=== PATIENT | female | born 1940 | race African-American/Black ===

== ENCOUNTER 2017-09-03 15:35 | Inpatient (IN) | payer MEDICARE, OTHER ==
[2017-09-03] MEDS ORDERED: Sodium Chloride 0.9% 1,000 ML IV ONE (16:17)
--- NOTE | 2017-09-03 16:18 | ED Physician Chart ---
ED Chief Complaint/HPI - Patient Information Date Seen:: 09/03/17 Time Seen:: 15:50 Chief Complaint:: Abdominal Pain History of Present Illness:: onset x 3 days of diffuse, intermittent abdominal pain; no report of H/As, neck pain, C/P, cough, SOB, A/N/V/D/C, fever, chills, or urinary s/s Allergies:: Allergies Allergy/AdvReac Type Severity Reaction Status Date / Time Penicillins [PCN] AdvReac Verified 09/03/17 15:41 Vitals:: Vital Signs - 8 hr 09/03/17 15:50 Temp 97.9 F HR 75 RR 16 BP 126/73 O2 Sat % 97 Historian:: Patient, EMS Review:: Nurse's Note Reviewed, Old Chart Reviewed, EMS run form Reviewed ED Review of Systems - Review of Systems General/Constitutional: No fever, No chills, No weight loss, No weakness, No diaphoresis, No edema, No loss of appetite Skin: No skin lesions, No rash, No bruising Head: No headache, No light-headedness Eyes: No loss of vision, No pain, No diplopia ENT: No earache, No nasal drainage, No sore throat, No tinnitus Neck: No neck pain, No swelling, No thyromegaly, No stiffness, No mass noted Cardio Vascular: No chest pain, No palpitations, No PND, No orthopnea, No edema Pulmonary: No SOB, No cough, No sputum, No wheezing GI: Nausea, Vomiting, Diarrhea, Pain, No melena, No hematochezia, No constipation, No hematemesis G/U: No dysuria, No frequency, No hematuria, No nacturia Tax Investigator: No vaginal discharge, No abnormal vaginal bleed, No contraction Musculoskeletal: No bone or joint pain, No back pain, No muscle pain Endocrine: No polyuria, No polydipsia Psychiatric: No prior psych history, No depression, No anxiety, No suicidal ideation, No homicidal ideation, No auditory hallucination, No visual hallucination Hematopoietic: No bruising, No lymphadenopathy Allergic/Immuno: No urticaria, No angioedema Neurological: No syncope, No focal symptoms, No weakness, No paresthesia, No headache, No seizure, No dizziness, Confusion, No vertigo ED Past Medical History - Past Medical History Obtainable: Yes Past Medical History: HTN, Asthma/COPD, Dyslipidemia, Dementia Family History: Diabetes Melitus, HTN Social History: Non Smoker, No Alcohol, No Drug Use, Single, Care Facility Surgical History: None Psychiatricy History: Dementia Medication: Reviewed Family Medical History - Family Member Father History Unknown: Yes ED Physical Exam - Physical Examination General/Constitutional: Awake, Well-developed, well-nourished, Alert, No distress, GCS 15, Non-toxic appearing, Ambulatory Head: Atraumatic Eyes: Lids, conjuctiva normal, PERRL, EOMI Skin: Nl inspection, No rash, No skin lesions, No ecchymosis, Well hydrated, No lymphadenopathy ENMT: External ears, nose nl, TM canals nl, Nasal exam nl, Lips, teeth, gums nl , Oropharynx nl, Tonsils nl Neck: Nontender, Full ROM w/o pain, No JVD, No nuchal rigidity, No bruit, No mass, No stridor Respiratory: Nl effort/Exclusion, Clear to Auscultation, No Wheeze/Rhonchi/Rales Cardio Vascular: RRR, No murmur, gallop, rubs, NL S1 S2, Carotid/Femoral/Distal pulses equal bilaterally GI: No tenderness/rebounding/guarding, No organomegaly, No hernia, Normal BS's, Nondistended, No McBurney tenderness Other GI comments:: + mass : No CVA tenderness Extremities: No tenderness or effusion, Full ROM, normal strength in all extremities, No edema, Normal digits & nails Neuro/Psych: Alert/oriented, DTR's symmetric, Normal sensory exam, Normal motor strength, Judgement/insight normal, Mood normal, Normal gait, No focal deficits Misc: Normal back, No paraspinal tenderness ED Labs/Radiology/EKG Results - Lab Results Comments:: BUN: 28 - Radiology Results Comments:: + fecal Impaction - EKG Interpretations EKG Time:: 16:29 Rate & Rhythm: 68; NSR Comments:: LVH; non-specific st-t changes ED Septic Shock - . Is Septic Shock (SBP<90, OR Lactate>4 mmol\L) present?: No - <6hrs of presentation: Vital Signs: Vital Signs - 8 hr 09/03/17 15:50 Temp 97.9 F HR 75 RR 16 BP 126/73 O2 Sat % 97 ED Reassessment (Disposition) - Reassessment Reassessment Condition:: Improved - Diagnosis Diagnosis:: Fecal Impaction; Abdominal Pain; Constipation; Dehydration' Pre-Renal Azotemia; Intractable Pain - Aftercare/Follow up Instructions Aftercare/Follow-Up Instructions:: Counseled pt regarding lab results/diagnosis & need follow up, Counseled pt & family regarding lab results/diagnosis & need follow up - Patient Disposition Discharge/Transfer:: Acute Care w/in this [facility] Accepting Physician:: Dr. Fletcher Time Called:: [id number] Time Responded:: 17:30 Admitted to:: Med/Surg Spoke to:: Dr. Fletcher Admitting Medical Physician:: Dr. Fletcher Condition at Disposition:: Stable, Improved ED Discharge Plan - Patient Disposition Admit/Discharge/Transfer: Acute Care w/in this [facility]
[2017-09-03 16:39] LABS: % BASOPHILS 0.2 % (0.0-2.0); % LYMPHOCYTES 21.3 % (20.0-50.0); % MONOCYTES 4.5 % (2.0-10.0); HEMATOCRIT 38.6 % (41.0-60); HEMOGLOBIN 12.3 gm/dL (12-16); MEAN CELL VOLUME 84.1 fl (81-100); MEAN CORPUSCULAR HEMOGLOBIN 26.8 pg (27.0-31.0); MEAN CORPUSCULAR HGB CONC 31.9 pg (28.0-36.0); MEAN PLATELET VOLUME 7.1 fl; MONOCYTE ABSOLUTE 0.2 Th/cmm (0.3-1.0); NEUTROPHILE ABSOLUTE 3.6 Th/cmm (1.8-8.0); PLATELET COUNT 253 Th/cmm (150-400); RED BLOOD COUNT 4.59 Mil/cmm (3.80-5.20); RED CELL DISTRIBUTION WIDTH 13.4 % (11.5-20.0); WHITE BLOOD COUNT 4.8 Th/cmm (4.8-10.8)
[2017-09-03 16:51] LABS: INR 0.98 (0.5-1.4); PROTHROMBIN TIME (TEST) 10.2 SECONDS (9.5-11.5)
[2017-09-03 16:59] LABS: ALBUMIN 4.2 gm/dL (3.7-5.3); ALKALINE PHOSPHATASE 38 U/L (34-104); AMYLASE SERUM 41 U/L (29-103); ANION GAP 11.1 (7.0-16.0); BILIRUBIN,TOTAL 0.2 mg/dL (0.3-1.0); BUN - UREA NITROGEN 28 mg/dL (7-25); CALCIUM SERUM 9.9 mg/dL (8.6-10.3); CARBON DIOXIDE 27.2 mEq/L (21.0-31.0); CHLORIDE 102 mEq/L (98-107); CHOLESTEROL 218 mg/dL (<200); CREATININE - SERUM 0.9 mg/dL (0.6-1.2); CREATININE KINASE 94 U/L (30-223); GLUCOSE 101 mg/dL (70-105); HDL -HIGH DENSITY LIPOPROTEIN 53 mg/dL (23-92); LIPASE 16 U/L (11-82); POTASSIUM SERUM 4.3 mEq/L (3.5-5.1); SGOT 15 U/L (13-39); SGPT/ALT 9 U/L (7-52); SODIUM SERUM 136 mEq/L (136-145); TOTAL PROTEIN,SERUM 8.3 gm/dL (6.0-8.3); TRIGLYCERIDES 115 mg/dL (<150)
[2017-09-03] MEDS ORDERED: Hydrocodone/APAP 5mg/325mg Tab PO PRN (19:15)
[2017-09-03] MEDS ORDERED: Mag Sulfate 2gm/50mL Premix 2 GM/50 ML BAG IV PRN (19:22)
[2017-09-03] MEDS ORDERED: Morphine Sulfate 2 mg/mL 1mL Syr IVP PRN (19:22)
[2017-09-03] MEDS ORDERED: Potassium Chloride 20 mEq ER Tab PO PRN (19:22)
[2017-09-03] MEDS: D5-0.9%NS 1,000 ML IV SCH (20:29)
[2017-09-03 21:52] LABS: A1C % 5.3 % (4.0-6.0)
[2017-09-04 03:54] VITALS: BP 139/69
[2017-09-04 06:36] LABS: % BASOPHILS 0.2 % (0.0-2.0); % LYMPHOCYTES 24.5 % (20.0-50.0); % MONOCYTES 7.2 % (2.0-10.0); % NEUTROPHILS 65.1 % (40.0-80.0); EOSINOPHILE ABSOLUTE 0.1 Th/cmm (0.1-0.4); HEMATOCRIT 35.7 % (41.0-60); HEMOGLOBIN 11.5 gm/dL (12-16); LYMPHOCYTE ABSOLUTE 1.1 Th/cmm (1.5-3.0); MEAN CELL VOLUME 83.7 fl (81-100); MEAN CORPUSCULAR HEMOGLOBIN 26.9 pg (27.0-31.0); MEAN CORPUSCULAR HGB CONC 32.2 pg (28.0-36.0); MEAN PLATELET VOLUME 7.9 fl; MONOCYTE ABSOLUTE 0.3 Th/cmm (0.3-1.0); NEUTROPHILE ABSOLUTE 2.8 Th/cmm (1.8-8.0); PLATELET COUNT 224 Th/cmm (150-400); RED BLOOD COUNT 4.27 Mil/cmm (3.80-5.20); RED CELL DISTRIBUTION WIDTH 13.5 % (11.5-20.0); WHITE BLOOD COUNT 4.3 Th/cmm (4.8-10.8)
[2017-09-04 06:48] LABS: ANION GAP 10.6 (7.0-16.0); BUN - UREA NITROGEN 21 mg/dL (7-25); CALCIUM SERUM 9.6 mg/dL (8.6-10.3); CARBON DIOXIDE 26.1 mEq/L (21.0-31.0); CHLORIDE 105 mEq/L (98-107); CREATININE - SERUM 0.8 mg/dL (0.6-1.2); GLUCOSE 103 mg/dL (70-105); POTASSIUM SERUM 3.7 mEq/L (3.5-5.1); SODIUM SERUM 138 mEq/L (136-145)
--- NOTE | 2017-09-04 07:45 | Diagnostic Imaging Report ---
CHEST X-RAY: AP view INDICATION: pain COMPARISON: None FINDINGS: Suboptimal lung the lungs are seen with chronic changes. No focal consolidation or effusions. Borderline prominent heart is noted. Degenerative changes of the spine are noted. IMPRESSION: Suboptimal lung volumes and chronic lung changes. No focal airspace consolidation identified.
--- NOTE | 2017-09-04 07:52 | Diagnostic Imaging Report ---
CT scan abdomen and pelvis without intravenous contrast HISTORY Total DLP equals 472 CTDI equals 10.1 Axial sections were obtained from the xiphoid process down to the pubic symphysis. The exam particularly within the pelvis and lower abdomen is compromised due to extensive artifact related to metallic surgical spinal hardware as well as artifact related to a metallic electrode pack situated over the right anterior abdomen. No focal lesions seen within the liver. The spleen appears normal. No focal amenities seen in the region of the pancreas. There is fullness of the right renal collecting system. No significant ureteral dilatation. The left kidney appears normal. The exam of the pelvis demonstrates a markedly distended stool-filled rectum consistent with a fecal impaction. Again, evaluation limited due to artifact as noted above. No obvious abnormal masses or fluid collections. Extensive surgical and degenerative changes noted through the lumbar spine. IMPRESSION: 1. Limited exam due to extensive artifact related to this surgical metallic hardware as noted above. 2. Distended stool-filled rectum consistent with a fecal impaction 3. Extensive surgical degenerative changes to the spine
[2017-09-04 14:59] LABS: URINE MICROSCOPIC INDICATED? YES; URINE SOURCE CATH
[2017-09-04 15:27] LABS: URINE BILIRUBIN NEGATIVE (NEGATIVE); URINE BLOOD NEGATIVE (NEGATIVE); URINE GLUCOSE (UA) NEGATIVE (NEGATIVE); URINE KETONE NEGATIVE (NEGATIVE); URINE LEUKOCYTE ESTERASE NEGATIVE (NEGATIVE); URINE NITRATE NEGATIVE (NEGATIVE); URINE PH 5.5 (4.6 - 8.0); URINE PROTEIN NEGATIVE (NEGATIVE); URINE UROBILINOGEN 0.2 E.U./dL (0.2 - 1.0)
[2017-09-04 15:42] LABS: URINE CLARITY CLEAR (CLEAR); URINE COLOR YELLOW
[2017-09-04] MEDS: D5-0.9%NS 1,000 ML IV SCH (17:32)
--- NOTE | 2017-09-04 20:07 | History & Physical ---
ADMIT DATE: 09/03/2017 CHIEF COMPLAINT: Worsening confusion, weakness and intractable abdominal pain. HISTORY OF PRESENT ILLNESS: The patient is a 77-year-old female, who is a patient [facility]. She has history of Alzheimer dementia along with mood disorder and neuropathic pain. Yesterday, she started experiencing severe abdominal pain along with weakness and worsening confusion. She was sent to the hospital where she was found to have severe fecal impaction, along with worsening confusion. PAST MEDICAL HISTORY: Significant for dyslipidemia, dementia and neuropathic pain. SOCIAL HISTORY: She lives in a jail facility. No history of alcohol, tobacco, or drug abuse. FAMILY HISTORY: Noncontributory. ALLERGIES: SHE IS APPARENTLY ALLERGIC TO PENICILLIN, EXACT REACTION IS UNKNOWN. SURGICAL HISTORY: She has a history of abdominal surgery in the past, but she cannot tell me for what. MEDICATIONS: All medications reviewed and reconciled. REVIEW OF SYSTEMS: GENERAL: Positive recent fatigue and worsening confusion. HEENT: No recent head trauma, change in vision, taste, hearing or smell. Oral: No recent pain or discharge. NECK: No recent tracheal deviation. ABDOMEN: Positive recent pain and distention. GASTROINTESTINAL: Positive for severe constipation. SKIN: No recent rashes. PSYCHIATRIC: No history of psychosis or hallucinations. NEUROLOGIC: She has been experiencing worsening confusion and lethargy. She also has history of neuropathic pain. EXTREMITIES: No recent edema. PHYSICAL EXAMINATION: VITAL SIGNS: Temperature 96 degrees, heart rate is 57, respirations 18, blood pressure 141/54. Currently, the pain is about 3/10. GENERAL: No acute distress. She is awake, alert to name only. She has labile mood. She has been refusing UA, but I spoke with her and she agrees. HEENT: No acute issues. NECK: Trachea is midline. No JVD. CARDIOVASCULAR: Regular rate and rhythm. ABDOMEN: Distended, but bowel sounds faintly present. No guarding. There is some pain. EXTREMITIES: No edema. SKIN: No rashes. PSYCHIATRIC: No psychosis or hallucinations. She does have labile mood. RESPIRATORY: Decreased breath sounds bilaterally. LABORATORY DATA: White count is 4.8, hemoglobin is 12.3 and platelet count is 253,000. INR is 10.2. Sodium 136, potassium 4.3, chloride 102, bicarbonate 27.2, BUN 28, creatinine 0.9, total bilirubin 0.2 and cholesterol 218. DIAGNOSTIC DATA: CT of the abdomen and pelvis is not completely accurate because of extensive artifact related to surgical metallic hardware and the patient not being totally compliant. There is a distended stool filled in rectum consistent with fecal impaction, and there are extensive surgical degenerative changes to the spine. ASSESSMENT: 1. Intractable abdominal pain. 2. Dyslipidemia. 3. Fecal impaction with obstipation. 4. Dementia, Alzheimer's type, with exacerbation. 5. Metabolic encephalopathy. 6. Neuropathic pain. 7. L-spine degenerative joint disease. 8. Unsteady gait. PLAN: The patient is receiving pain control. She has agreed to a UA. UA has been ordered because of the worsening confusion. Continue pain control. GI has been consulted. I will follow up on the rest of the labs, especially the UA. Continue pain control. She can benefit from PT as well. JOB# [id number]
[2017-09-05 06:59] LABS: % BASOPHILS 0.2 % (0.0-2.0); % LYMPHOCYTES 37.5 % (20.0-50.0); % MONOCYTES 9.1 % (2.0-10.0); % NEUTROPHILS 46.2 % (40.0-80.0); EOSINOPHILE ABSOLUTE 0.2 Th/cmm (0.1-0.4); HEMATOCRIT 33.9 % (41.0-60); HEMOGLOBIN 10.7 gm/dL (12-16); LYMPHOCYTE ABSOLUTE 1.2 Th/cmm (1.5-3.0); MEAN CELL VOLUME 84.7 fl (81-100); MEAN CORPUSCULAR HEMOGLOBIN 26.7 pg (27.0-31.0); MEAN CORPUSCULAR HGB CONC 31.5 pg (28.0-36.0); MEAN PLATELET VOLUME 7.9 fl; MONOCYTE ABSOLUTE 0.3 Th/cmm (0.3-1.0); NEUTROPHILE ABSOLUTE 1.6 Th/cmm (1.8-8.0); PLATELET COUNT 218 Th/cmm (150-400); RED BLOOD COUNT 4.01 Mil/cmm (3.80-5.20); RED CELL DISTRIBUTION WIDTH 13.5 % (11.5-20.0)
[2017-09-05 07:11] LABS: INR 1.06 (0.5-1.4)
[2017-09-05 07:19] LABS: WHITE BLOOD COUNT 3.3 Th/cmm (4.8-10.8)
[2017-09-05 07:28] LABS: ALB/GLOB RATIO 1.1 (1.0-1.8); ALBUMIN 3.5 gm/dL (3.7-5.3); ALKALINE PHOSPHATASE 30 U/L (34-104); ANION GAP 8.7 (7.0-16.0); BILIRUBIN,TOTAL 0.3 mg/dL (0.3-1.0); BUN - UREA NITROGEN 14 mg/dL (7-25); CARBON DIOXIDE 26.9 mEq/L (21.0-31.0); CHLORIDE 108 mEq/L (98-107); GLUCOSE 94 mg/dL (70-105); LIPASE 11 U/L (11-82); POTASSIUM SERUM 3.6 mEq/L (3.5-5.1); SGOT 12 U/L (13-39); SGPT/ALT 7 U/L (7-52); SODIUM SERUM 140 mEq/L (136-145); TOTAL PROTEIN,SERUM 6.8 gm/dL (6.0-8.3)
[2017-09-05] MEDS: D5-0.9%NS 1,000 ML IV SCH ×2 (09:02→21:22)
[2017-09-05] MEDS ORDERED: Propofol 10 mg/mL 20mL Vial **SURGERY USE ONLY IV ONE (10:40)
[2017-09-05] MEDS ORDERED: Magnesium Citrate 1.75 GM/300 mL Bottle PO ONE (11:17)
[2017-09-05] MEDS: Pantoprazole 40 mg EC Tab PO SCH (12:34)
[2017-09-05 12:49] LABS: URINE BACTERIA NONE SEEN /hpf (NONE SEEN); URINE EPITHELIAL CELLS FEW /lpf (FEW); URINE RBC 0-2 /hpf (0-5); URINE WBC 0-2 /hpf (0-5)
--- NOTE | 2017-09-05 13:20 | Diagnostic Imaging Report ---
Ultrasound abdomen HISTORY: Abdominal pain COMPARISON: CT abdomen and pelvis on 09/03/2017 Technique: Sonography of the abdomen was performed in multiple planes. FINDINGS: Exam is limited due to bowel gas. The liver demonstrates normal echogenicity. The liver margins are not well-defined, however, no evidence of focal lesions.. The liver measures 14.7 cm. No evidence of gallstones or gallbladder wall thickening. The common bile duct measures 4 mm. Evaluation of the pancreas is limited due to bowel gas. The right kidney measures 9.6 x 5 cm. There is fullness of the right renal collecting system without evidence of ciarra hydronephrosis. The left kidney measures 10.1 x 5.9 cm. A left renal sonolucent lesion is noted measuring 1.4 cm. No hydronephrosis. The spleen measures 10.4 cm. The visualized portions of the abdominal aorta within normal limits in size. IMPRESSION: No evidence of gallstones. Fullness of right renal collecting system without evidence of ciarra hydronephrosis. Left renal 1.4 cm cyst.
--- NOTE | 2017-09-05 13:48 | Progress Notes ---
DATE: SUBJECTIVE: The patient is resting comfortably in bed, complains of continued abdominal pain. The patient underwent an EGD, which revealed gastritis and abdominal ultrasound is currently being performed due to continued abdominal pain. Pain is currently well controlled. She is on a low sodium diet per Gastroenterology. H. pylori test currently pending. OBJECTIVE: VITAL SIGNS: Temperature 96 degrees Fahrenheit, pulse 57, blood pressure 141/84, respiratory rate 18, O2 sat 96%. GENERAL: NAD. HEENT: PERRLA, EOMI. NECK: Supple. Trachea midline. CARDIOVASCULAR: Regular rate and rhythm. RESPIRATORY: Clear to auscultation bilaterally. No wheezes, rales, or rhonchi. ABDOMEN: Soft, nontender. abdominal tenderness along the right upper quadrant. There is a morphine pump placed along the right side of the abdomen. No guarding or rebound tenderness. LABORATORY DATA: White blood cell count 3.3, hemoglobin is 10.7. Sodium is 140, potassium 3.6. ASSESSMENT AND PLAN: 1. Abdominal pain GI disorder secondary to gastritis. 2. fecal impaction, constipation. 3. Alzheimer dementia exacerbation. 4. Metabolic encephalopathy secondary to Alzheimer dementia exacerbation, dyslipidemia, gastritis, neuropathic pain, lumbar degenerative disk disease with radiculopathy, unsteady gait, muscle weakness. JOB# [id number]
--- NOTE | 2017-09-05 16:44 | Operative Report ---
DATE OF SURGERY: 09/05/2017 PROCEDURE: Esophagogastroduodenoscopy with biopsy. INDICATION FOR PROCEDURE: Abdominal pain. CONSENT: Informed consent was obtained from the patient's family after planning benefits and risks including infection, bleeding, perforation, . ANESTHESIA USED: Propofol. PREOPERATIVE DIAGNOSIS: Abdominal pain. POSTOPERATIVE DIAGNOSIS: Gastritis. DESCRIPTION OF PROCEDURE: The patient was placed in semi-left lateral position. Upper Olympus endoscope was introduced into the mouth and advanced to the esophagus, which was intubated under direct visualization. Esophageal mucosa was examined on the way down, it was essentially normal. GE junction was identified at 38 cm. Scope was advanced to the stomach where the gastric mucosa was examined and it showed gastritis with areas of erythema involving the body and antrum. Scope was advanced through the pylorus to the duodenum where the bulb and second part were examined. They both normal. Scope was withdrawn to the stomach, retroflexed to examine the cardia and fundus and it showed a small hiatal hernia. Scope was then straightened. Same examination was repeated again without new findings. So biopsies were taken from the antrum and body for histopathology and from the antrum for CLOtest. Scope was then withdrawn while examining the gastric and esophageal mucosa one more time. The patient tolerated the procedure well. There were no immediate postoperative complications. RECOMMENDATIONS: 1. Follow up biopsy results and CLOtest 2. Treat H. pylori if positive. 3. PPI. 4. Advance diet. Thank you, Dr. Fletcher, for allowing me to participate in the care of this patient. If you have any further questions, please let me know. [facility]# [id number]
--- NOTE | 2017-09-06 03:28 | Consultation ---
DATE OF CONSULTATION: 09/04/2017 REASON FOR CONSULTATION: Abdominal pain. HISTORY OF PRESENT ILLNESS: This consult was obtained through the courtesy of Dr. Fletcher for this 77-year-old, living in a [facility] with history of dementia, admitted to the hospital for abdominal pain. The patient is not able to provide any history. She has past medical history of dementia, hyperlipidemia, neuropathic pain, hypertension, asthma, COPD. PAST MEDICAL HISTORY: Hypertension, asthma, COPD, hyperlipidemia, dementia, and back problem. PAST SURGICAL HISTORY: She had back surgery and she has an implanted device. SOCIAL HISTORY: Nonsmoker, nonalcoholic, no IV drug abuser. FAMILY HISTORY: Noncontributory and unobtainable. ALLERGIES: No known drug allergies. REVIEW OF SYSTEMS: Unobtainable. PHYSICAL EXAMINATION: GENERAL: The patient is awake, oriented to self, in no acute distress, cooperative. VITAL SIGNS: Blood pressure was 140/47, heart rate was 64, respiratory rate was 18, and temperature is 98.5. HEAD AND NECK: Pupils reactive to light. Extraocular muscles could not be tested. Oral cavity, no lesion. NECK: Supple. CHEST: Good air entry. LUNGS: Clear to auscultation. CARDIOVASCULAR: Regular rate and rhythm. No murmur or gallop. ABDOMEN: Soft, positive bowel sounds. There is a metal part in the periumbilical area and there is tenderness in the area. There is also epigastric tenderness. EXTREMITIES: Lower extremities, no edema. CENTRAL NERVOUS SYSTEM: Grossly nonfocal. LABORATORY DATA: White count was 4.3, H and H are 11.5 and 35.7 with normal platelets. Normal PT. Chemistry was unremarkable including liver function tests. Cholesterol was a little high at 218. DIAGNOSTIC DATA: The patient had a CT of the abdomen and pelvis, which showed the hardware on the back and on the anterior part of the abdomen showed degenerative changes, stool filled rectum with fecal impaction. IMPRESSION: A 77-year-old with abdominal pain. ASSESSMENT AND PLAN: Abdominal pain. It is most probably combination of pain due to colon distention and possible fecal impaction, but also could be an element of peptic ulcer disease, irritable bowel syndrome, etc. RECOMMENDATIONS: 1. Monitor labs. 2. Symptomatic treatment. 3. Laxatives. 4. Endoscopy. 5. Further recommendations to follow. Other medical problem such as hypertension, dementia, etc., as per Dr. Fletcher. Thank you, Dr. Fletcher, for allowing me to participate in the care of this patient. If you have any further questions, please let me know. JOB# [id number]
[2017-09-06 06:48] LABS: % BASOPHILS 0.1 % (0.0-2.0); % EOSINOPHILS 7.4 % (0.0-5.0); % LYMPHOCYTES 37.2 % (20.0-50.0); % MONOCYTES 9.1 % (2.0-10.0); % NEUTROPHILS 46.2 % (40.0-80.0); EOSINOPHILE ABSOLUTE 0.3 Th/cmm (0.1-0.4); HEMATOCRIT 32.7 % (41.0-60); HEMOGLOBIN 10.4 gm/dL (12-16); LYMPHOCYTE ABSOLUTE 1.4 Th/cmm (1.5-3.0); MEAN CELL VOLUME 84.7 fl (81-100); MEAN CORPUSCULAR HGB CONC 31.8 pg (28.0-36.0); MEAN PLATELET VOLUME 7.4 fl; MONOCYTE ABSOLUTE 0.3 Th/cmm (0.3-1.0); NEUTROPHILE ABSOLUTE 1.7 Th/cmm (1.8-8.0); PLATELET COUNT 221 Th/cmm (150-400); RED BLOOD COUNT 3.86 Mil/cmm (3.80-5.20); RED CELL DISTRIBUTION WIDTH 13.7 % (11.5-20.0)
[2017-09-06 06:55] LABS: WHITE BLOOD COUNT 3.7 Th/cmm (4.8-10.8)
[2017-09-06 06:59] LABS: ANION GAP 9.3 (7.0-16.0); BUN - UREA NITROGEN 12 mg/dL (7-25); CALCIUM SERUM 8.8 mg/dL (8.6-10.3); CARBON DIOXIDE 26.4 mEq/L (21.0-31.0); CHLORIDE 110 mEq/L (98-107); CREATININE - SERUM 0.7 mg/dL (0.6-1.2); GLUCOSE 93 mg/dL (70-105); POTASSIUM SERUM 3.7 mEq/L (3.5-5.1); SODIUM SERUM 142 mEq/L (136-145)
[2017-09-06] MEDS: Pantoprazole 40 mg EC Tab PO SCH (09:15)
--- NOTE | 2017-09-06 09:45 | GI Progress Note ---
Subjective - Review of Systems Subjective: LOOSE BM DENIES ABD PAIN Objective - Results Result Diagrams: 09/06/17 05:16 09/06/17 05:16 Recent Labs: Laboratory Last Values WBC 3.7 Th/cmm (4.8-10.8) L 09/06/17 05:16 RBC 3.86 Mil/cmm (3.80-5.20) 09/06/17 05:16 Hgb 10.4 gm/dL (12-16) L 09/06/17 05:16 Hct 32.7 % (41.0-60) L 09/06/17 05:16 MCV 84.7 fl (81-100) 09/06/17 05:16 MCH 27.0 pg (27.0-31.0) 09/06/17 05:16 MCHC Differential 31.8 pg (28.0-36.0) 09/06/17 05:16 RDW 13.7 % (11.5-20.0) 09/06/17 05:16 Plt Count 221 Th/cmm (150-400) 09/06/17 05:16 MPV 7.4 fl 09/06/17 05:16 Neutrophils % 46.2 % (40.0-80.0) 09/06/17 05:16 Lymphocytes % 37.2 % (20.0-50.0) 09/06/17 05:16 Monocytes % 9.1 % (2.0-10.0) 09/06/17 05:16 Eosinophils % 7.4 % (0.0-5.0) H 09/06/17 05:16 Basophils % 0.1 % (0.0-2.0) 09/06/17 05:16 PT 11.0 SECONDS (9.5-11.5) 09/05/17 06:00 INR 1.06 (0.5-1.4) 09/05/17 06:00 Sodium 142 mEq/L (136-145) 09/06/17 05:16 Potassium 3.7 mEq/L (3.5-5.1) 09/06/17 05:16 Chloride 110 mEq/L (98-107) H 09/06/17 05:16 Carbon Dioxide 26.4 mEq/L (21.0-31.0) 09/06/17 05:16 Anion Gap 9.3 (7.0-16.0) 09/06/17 05:16 BUN 12 mg/dL (7-25) 09/06/17 05:16 Creatinine 0.7 mg/dL (0.6-1.2) 09/06/17 05:16 Est GFR ( Amer) TNP 09/06/17 05:16 Est GFR (Non-Af Amer) TNP 09/06/17 05:16 BUN/Creatinine Ratio 17.1 09/06/17 05:16 Glucose 93 mg/dL (70-105) 09/06/17 05:16 Hemoglobin A1c % 5.3 % (4.0-6.0) 09/03/17 16:30 Calcium 8.8 mg/dL (8.6-10.3) 09/06/17 05:16 Magnesium 2.0 mg/dL (1.9-2.7) 09/03/17 16:30 Total Bilirubin 0.3 mg/dL (0.3-1.0) 09/05/17 06:00 AST 12 U/L (13-39) L 09/05/17 06:00 ALT 7 U/L (7-52) 09/05/17 06:00 Alkaline Phosphatase 30 U/L (34-104) L 09/05/17 06:00 Creatine Kinase 94 U/L (30-223) 09/03/17 16:30 Troponin I 0.03 ng/mL (0.01-0.05) 09/03/17 16:30 B-Natriuretic Peptide 6.7 pg/mL (5.0-100.0) 09/03/17 16:30 Total Protein 6.8 gm/dL (6.0-8.3) 09/05/17 06:00 Albumin 3.5 gm/dL (3.7-5.3) L 09/05/17 06:00 Globulin 3.3 gm/dL 09/05/17 06:00 Albumin/Globulin Ratio 1.1 (1.0-1.8) 09/05/17 06:00 Triglycerides 115 mg/dL (<150) 09/03/17 16:30 Cholesterol 218 mg/dL (<200) H 09/03/17 16:30 LDL Cholesterol Direct 148 mg/dL (75-193) 09/03/17 16:30 HDL Cholesterol 53 mg/dL (23-92) 09/03/17 16:30 Amylase 41 U/L (29-103) 09/03/17 16:30 Lipase 11 U/L (11-82) 09/05/17 06:00 Urine Source CATH 09/04/17 14:00 Urine Color YELLOW 09/04/17 14:00 Urine Clarity CLEAR (CLEAR) 09/04/17 14:00 Urine pH 5.5 (4.6 - 8.0) 09/04/17 14:00 Ur Specific [place] 1.015 (1.005-1.030) 09/04/17 14:00 Urine Protein NEGATIVE mg/dL (NEGATIVE) 09/04/17 14:00 Urine Glucose (UA) NEGATIVE mg/dL (NEGATIVE) 09/04/17 14:00 Urine Ketones NEGATIVE mg/dL (NEGATIVE) 09/04/17 14:00 Urine Blood NEGATIVE (NEGATIVE) 09/04/17 14:00 Urine Nitrate NEGATIVE (NEGATIVE) 09/04/17 14:00 Urine Bilirubin NEGATIVE (NEGATIVE) 09/04/17 14:00 Urine Urobilinogen 0.2 E.U./dL (0.2 - 1.0) 09/04/17 14:00 Ur Leukocyte Esterase NEGATIVE (NEGATIVE) 09/04/17 14:00 Urine RBC 0-2 /hpf (0-5) 09/04/17 14:00 Urine WBC 0-2 /hpf (0-5) 09/04/17 14:00 Ur Epithelial Cells FEW /lpf (FEW) 09/04/17 14:00 Urine Bacteria NONE SEEN /hpf (NONE SEEN) 09/04/17 14:00 Blood Type A POSITIVE 09/05/17 09:45 Antibody Screen NEGATIVE 09/05/17 09:45 - Physical Exam Vitals and I&O: Vital Signs Temp 97.2 F 09/06/17 04:00 Pulse 79 09/06/17 04:00 Resp 18 09/06/17 04:00 BP 132/62 09/06/17 04:00 Pulse Ox 98 09/06/17 04:00 Intake & Output 09/05/17 09/06/17 09/06/17 18:59 06:59 18:59 Intake Total 450 925 200 Balance 450 925 200 Weight (lbs) 67.585 kg 68.039 kg 68.039 kg Intake: Intake, IV Amount 925 D5-0.9%Ns 1,000 ml @ 75 925 mls/hr IV .[id number] [facility] Rx #:[id number] Oral 450 200 Other: # Voids 3 2 # Bowel Movements 1 0 Active Medications: Current Medications Acetaminophen (Tylenol) 650 mg PO Q6H PRN PRN Reason: HEADACHE/TEMP ABOVE 100F Stop: 11/02/17 19:21 Last Admin: 09/06/17 09:15 Dose: 650 mg Acetaminophen/Hydrocodone Bitart ([place] 5mg/325mg) 1 tab PO TID PRN PRN Reason: Pain (Severe) Stop: 11/02/17 19:14 Docusate Sodium (Colace) 250 mg PO DAILY [facility] Stop: 11/03/17 08:59 Last Admin: 09/06/17 09:14 Dose: Not Given Gabapentin (Neurontin) 300 mg PO BID [facility] Stop: 11/03/17 08:59 Last Admin: 09/06/17 09:15 Dose: 300 mg Heparin Sodium (Porcine) (Heparin) 5,000 units SUBQ Q12HR [facility] Stop: 11/02/17 20:59 Last Admin: 09/06/17 09:15 Dose: 5,000 units Dextrose/Sodium Chloride (D5-0.9%Ns) 1,000 mls @ 75 mls/hr IV .[id number] [facility] Stop: 11/02/17 19:29 Last Admin: 09/05/17 21:22 Dose: 75 mls/hr Magnesium Sulfate (Magnesium Sulfate Premix) 2 gm in 50 mls @ 25 mls/hr IV DAILY PRN PRN Reason: Magnesium level less than 1.6 Stop: 11/02/17 19:21 Lorazepam (Ativan) 1 mg IVP Q4HR PRN; Protocol PRN Reason: Anxiety Stop: 11/02/17 19:21 Last Admin: 09/04/17 01:26 Dose: 1 mg Morphine Sulfate (Morphine) 1 mg IVP Q4HR PRN PRN Reason: Severe Pain Stop: 11/02/17 19:21 Ondansetron HCl (Zofran) 4 mg IVP Q6H PRN PRN Reason: Nausea / Vomiting Stop: 11/02/17 19:21 Pantoprazole Sodium (Protonix) 40 mg PO DAILY [facility] Stop: 11/04/17 11:29 Last Admin: 09/06/17 09:15 Dose: 40 mg Potassium Chloride (Klor-Con) 40 meq PO DAILY PRN PRN Reason: k level less than 3.5 Stop: 11/02/17 19:21 Pregabalin (Lyrica) 75 mg PO BID [facility] Stop: 11/03/17 08:59 Last Admin: 09/06/17 09:15 Dose: 75 mg Zolpidem Tartrate (Ambien) 10 mg PO HS PRN PRN Reason: Insomnia Stop: 11/02/17 19:21 Last Admin: 09/03/17 23:32 Dose: 10 mg Assessment/Plan - Assessment Assessment: 77 YO FEMALE WITH ABD PAIN EGD SHOWED GASTRITIS LOOSE BM COULD BE DUE TO CDIFF 1.CONT PROTONIX 2.CHECK CDIFF 3.CONT SUPP CARE
[2017-09-06] MEDS: D5-0.9%NS 1,000 ML IV SCH (11:44)
--- NOTE | 2017-09-08 10:08 | Discharge Summary ---
DATE OF DISCHARGE: DISCHARGE DIAGNOSES: 1. Gastrointestinal disorder secondary to gastritis. 2. Fecal impaction with obstipation. 3. Metabolic encephalopathy, secondary Alzheimer dementia exacerbation. 4. Dyslipidemia. 5. Neuropathic pain. 6. Lumbar degenerative disk disease with radiculopathy. 7. Unsteady gait. 8. Muscle weakness. ADMITTING DIAGNOSES: Intractable abdominal pain, dyslipidemia, fecal impaction with obstipation, metabolic encephalopathy secondary to Alzheimer dementia exacerbation, neuropathic pain, L-spine degenerative joint disease, unsteady gait. CONDITION: Stable. PROCEDURES: EGD, which revealed gastritis. DISPOSITION: [facility]. FOLLOWUP: Follow up with Dr. Randall. HISTORY OF PRESENT ILLNESS: A 77-year-old female presented from [facility] for the acute complaint of abdominal pain with associated nausea and vomiting. She was admitted to Med/Surg, and GI was consulted due to fecal impaction and obstipation and possible GI ulceration given her history of gastritis. An EGD was performed and it revealed gastritis. The patient was given Colace, milk of magnesia, and other medications for fecal impaction with obstipation. The patient's abdominal pain resolved and she will be discharged back to [facility]. [facility]# [id number]
--- NOTE | 2017-09-08 15:43 | Pathology Report ---
[id number] Collection Date: 09/05/2017 Surgeon: Dr. Dorothy Machado Specimen Description: Antrum biopsy Gross Description: Received in formalin are two wagoner soft tissue fragments, ranging from 0.1 to 0.2 cm in greatest dimension. Totally submitted in one cassette. Microscopic Description: The histologic sections show gastric mucosa with chronic inflammation present consisting of increased numbers of lymphocytes and plasma cells. The Giemsa stain shows no evidence for Helicobacter pylori. Diagnosis: 1. Chronic gastritis, antrum biopsy. 2. The Giemsa stain is negative for Helicobacter pylori. JOB# [id number]
== END 2017-09-06 07:35 | disposition home or self-care (01) | DRG 391 ==
LOC: ER 15:35 → MSI 18:40
PROVIDERS: ADMIT General Practice; ATTEND General Practice
PROC: 0DB68ZX Excision of Stomach, Via Natural or Artificial Opening Endoscopic, Diagnostic (ICD-10-PCS; principal; 2017-09-05)
DX: K29.70 Gastritis, unspecified, without bleeding (principal); G93.41 Metabolic encephalopathy; G62.9 Polyneuropathy, unspecified; E86.0 Dehydration; F02.81 Dementia in other diseases classified elsewhere, unspecified severity, with behavioral disturbance; G30.9 Alzheimer's disease, unspecified; K56.41 Fecal impaction; J44.9 Chronic obstructive pulmonary disease, unspecified; E78.5 Hyperlipidemia, unspecified; M19.90 Unspecified osteoarthritis, unspecified site; R26.81 Unsteadiness on feet; I10 Essential (primary) hypertension; M47.26 Other spondylosis with radiculopathy, lumbar region; R26.9 Unspecified abnormalities of gait and mobility; M62.81 Muscle weakness (generalized); K44.9 Diaphragmatic hernia without obstruction or gangrene; Z88.0 Allergy status to penicillin; Z83.3 Family history of diabetes mellitus; Z82.49 Family history of ischemic heart disease and other diseases of the circulatory system
CPT/HCPCS: 36415-UA; 71045-TC; 76700-TC; 80048-TC; 80053-TC; 80061-TC; 81001-TC; 82150-TC; 82550-TC; 83036-90; 83690-TC; 83735-TC; 83880-TC; 84484-TC; 85025-TC; 85610-TC; 86850-TC; 86900-TC; 86901-TC; 87338-TC; 88305-90; 88312-90; 93005; 94760; J1644; J2060; J2270; J2405; J2704; J7030; J7042; Z7610